=== PATIENT | male | born 1975 | race Caucasian/White ===

== ENCOUNTER → 2018-02-15 | Outpatient (CLI) | payer BC | LOC: COL.RAD 02-12 09:45 | DX: M47.22 Other spondylosis with radiculopathy, cervical region (principal); M48.02 Spinal stenosis, cervical region; M99.71 Connective tissue and disc stenosis of intervertebral foramina of cervical region ==

== ENCOUNTER → 2020-06-29 | Outpatient (CLI) | payer BC | LOC: COL.RAD 12:33 | DX: M25.542 Pain in joints of left hand (principal) | CPT/HCPCS: J3301; Q9967 ==

== ENCOUNTER 2021-02-20 08:05 | Emergency (ER) | payer BC ==
[~2021-02-20] VITALS: Ht 177.8 cm; Wt 106.8 kg
[2021-02-20 08:12] VITALS: TEMP 98.7
[2021-02-20 10:08] LABS: EOS % 0.4 % (0-4.0); GRAN # 1.7 (1.4-6.5); GRAN % 67.6 % (42.2-75.2); HEMATOCRIT 43.1 % (42.0-52.0); HEMOGLOBIN 15.1 g/dl (13.5-18.0); LYMPH # 0.6 (1.2-3.4); LYMPH % 22.1 % (20.0-51.0); MEAN CELL VOLUME 87 fl (80.0-100.0); MEAN CORPUSCULAR HEMOGLOBIN 30 pg (27.0-31.0); MEAN CORPUSCULAR HGB CONC 35 g/dl (33.0-37.0); MEAN PLATELET VOLUME 11.2 fl (7.4-10.4); MONO # 0.3 (0.1-0.6); MONO % 9.9 % (1.7-9.3); PLATELET COUNT 94 K/mm3 (130-400); RED BLOOD COUNT 4.98 M/mm3 (4.20-5.60); REDCELL DISTRIBUTION WIDTH-CV 12.2 % (11.5-14.5)
[2021-02-20 10:13] LABS: PROTHROMBIN TIME 11.6 SECONDS (9.7-12.8)
[2021-02-20 10:14] LABS: BILIRUBIN,TOTAL 0.4 mg/dL (0.0-1.0); CALCIUM 8.9 mg/dL (8.4-10.2); CREATININE, serum 1.15 (0.66-1.25); TOTAL PROTEIN 6.9 gm/dL (6.4-8.2)
[2021-02-20 11:19] VITALS: BP 147/103; PULSE 82
== END 2021-02-20 11:20 | disposition short-term general hospital (02) ==
LOC: COL.ER 08:05
PROVIDERS: Family Medicine
DX: D32.9 Benign neoplasm of meninges, unspecified (principal); I10 Essential (primary) hypertension
CPT/HCPCS: J0780; J2270; Q9967

== ENCOUNTER → 2021-06-17 | Outpatient (CLI) | payer BC | LOC: COL.RAD 07:40 | DX: M25.541 Pain in joints of right hand (principal) | CPT/HCPCS: J3301; Q9967 ==